=== PATIENT | male | born 1985 | race Caucasian/White ===

== ENCOUNTER 2018-06-06 15:21 | Inpatient (IN) | payer BC ==
--- NOTE | 2018-06-06 17:06 | EDM.PDOC ---
ED HPI GENERAL MEDICAL PROBLEM - General Chief Complaint: Abdominal Pain Stated Complaint: LOW ABDOMINAL PAIN Time Seen by Provider: 06/06/18 16:30 Source of Information: Reports: Patient, RN Notes Reviewed History Limitations: Reports: No Limitations - History of Present Illness INITIAL COMMENTS - FREE TEXT/NARRATIVE: Patient is a 33 year old male who presents to the ED for the evaluation of RLQ abdominal pain. He states that this pain has been present since thursday afternoon. This is a constant pressure with sharp pains that radiate to his belly button area every 4-5 min. He did have a normal BM this morning and denies any urinary issues. He further denies any history of colitis or IBS or diverticulitis. He does still have his appendix. He would rate his pain at an 8/ 10. He does admit to some nausea, but denies any vomiting or diarrhea, chest pain or shortness of breath. Right Lower Abdomen Pain Score (Numeric/FACES): 8 - Related Data Allergies Allergy/AdvReac Type Severity Reaction Status Date / Time No Known Allergies Allergy Verified 06/06/18 15:41 Home Meds: Home Meds . [No Known Home Meds] 06/06/18 [History] Past Medical History - Past Surgical History Male Surgical History: Reports: Other (See Below) Other Male Surgeries/Procedures: testicle surgery about 10 yrs ago Social & Family History - Tobacco Use Smoking Status *Q: Never Smoker - Caffeine Use Caffeine Use: Reports: Energy Drinks, Soda - Recreational Drug Use Recreational Drug Use: No ED ROS GENERAL - Review of Systems Review Of Systems: See Below Constitutional: Denies: Fever, Chills HEENT: Reports: No Symptoms Respiratory: Reports: No Symptoms Cardiovascular: Reports: No Symptoms Endocrine: Reports: No Symptoms GI/Abdominal: Reports: Nausea. Denies: Constipation, Diarrhea, Distension, Vomiting : Reports: No Symptoms Musculoskeletal: Reports: No Symptoms Skin: Reports: No Symptoms Neurological: Reports: No Symptoms Psychiatric: Reports: No Symptoms Hematologic/Lymphatic: Reports: No Symptoms Immunologic: Reports: No Symptoms ED EXAM, GI/ABD - Physical Exam Exam: See Below Exam Limited By: No Limitations General Appearance: Alert, WD/WN, No Apparent Distress Ears: Normal External Exam Nose: Normal Inspection Throat/Mouth: Normal Inspection, Normal Oropharynx, No Airway Compromise Head: Atraumatic, Normocephalic Neck: Normal Inspection Respiratory/Chest: No Respiratory Distress, Lungs Clear, Normal Breath Sounds, No Accessory Muscle Use, Chest Non-Tender Cardiovascular: Normal Peripheral Pulses, Regular Rate, Rhythm, No Murmur GI/Abdominal Exam: Normal Bowel Sounds, Soft, No Distention, No Abnormal Bruit, No Mass, Tender (RLQ). No: Distended, Guarding, Rigid, Mass Extremities: Normal Inspection, Normal Capillary Refill Neurological: Alert, Oriented, Normal Cognition, No Motor/Sensory Deficits Psychiatric: Normal Affect, Normal Mood Skin Exam: Warm, Dry, Intact, Normal Color, No Rash Course - Vital Signs Last Recorded V/S: Last Vital Signs Temp 100.3 F 06/06/18 15:40 Pulse 88 06/06/18 19:48 Resp 20 06/06/18 19:48 BP 126/82 06/06/18 19:48 Pulse Ox 99 06/06/18 19:48 - Orders/Labs/Meds Orders: Active Orders 24 hr Category Date Time Status Admission Status [Patient Status] [ADT] Routine ADT 06/06/18 19:44 Active Schedule Procedure [COMM] Stat Oth 06/06/18 19:45 Ordered Labs: Laboratory Tests 06/06/18 06/06/18 06/06/18 Range/Units 16:00 16:00 16:00 WBC 18.21 H (4.23-9.07) K/mm3 RBC 4.49 L (4.63-6.08) M/mm3 Hgb 14.3 (13.7-17.5) gm/L Hct 42.7 (40.1-51.0) % MCV 95.1 H (79.0-92.2) fl MCH 31.8 (25.7-32.2) pg MCHC 33.5 (32.2-35.5) g/dl RDW Std Deviation 43.4 (35.1-43.9) fL Plt Count 302 (163-337) K/mm3 MPV 9.8 (9.4-12.3) fl Neutrophils % (Manual) 77 H (40-60) % Band Neutrophils % 2 (0-10) % Lymphocytes % (Manual) 12 L (20-40) % Atypical Lymphs % 0 % Monocytes % (Manual) 8 (2-10) % Eosinophils % (Manual) 1 (0.8-7.0) % Basophils % (Manual) 0 L (0.2-1.2) Platelet Estimate Adequate Plt Morphology Comment Normal RBC Morph Comment Normal Sodium 139 (136-145) mEq/L Potassium 3.6 (3.5-5.1) mEq/L Chloride 101 (98-107) mEq/L Carbon Dioxide 29 (21-32) mEq/L Anion Gap 12.6 (5-15) BUN 13 (7-18) mg/dL Creatinine 1.2 (0.7-1.3) mg/dL Est Cr Clr Drug Dosing 98.03 mL/min Estimated GFR (MDRD) > 60 (>60) mL/min BUN/Creatinine Ratio 10.8 L (14-18) Glucose 105 (74-106) mg/dL Calcium 9.1 (8.5-10.1) mg/dL Total Bilirubin 2.5 H (0.2-1.0) mg/dL AST 15 (15-37) U/L ALT 20 (16-63) U/L Alkaline Phosphatase 81 (46-116) U/L C-Reactive Protein 13.8 H* (<1.0) mg/dL Total Protein 7.9 (6.4-8.2) g/dl Albumin 4.1 (3.4-5.0) g/dl Globulin 3.8 gm/dL Albumin/Globulin Ratio 1.1 (1-2) Urine Color Yellow (Yellow) Urine Appearance Clear (Clear) Urine pH 6.0 (5.0-8.0) Ur Specific [place] > or = 1.030 (1.005-1.030) Urine Protein 1+ H (Negative) Urine Glucose (UA) Negative (Negative) Urine Ketones 3+ H (Negative) Urine Occult Blood Trace-lysed H (Negative) Urine Nitrite Negative (Negative) Urine Bilirubin 1+ H (Negative) Urine Urobilinogen 0.2 (0.2-1.0) Ur Leukocyte Esterase Negative (Negative) Urine RBC 0-5 (0-5) /hpf Urine WBC 0-5 (0-5) /hpf Ur Epithelial Cells Not Reportable Ur Squamous Epith Cells 0-5 (0-5) /hpf Urine Bacteria Rare (FEW) /hpf Urine Mucus Many H (FEW) /hpf Meds: Medications Discontinued Medications Generic Name Dose Route Start Last Admin Trade Name Freq PRN Reason Stop Dose Admin Bupivacaine HCl Confirm 12/30/18 19:44 06/06/18 20:25 Marcaine 0.5% Administered 06/06/18 19:45 30 ml Dose Administration 30 ml .ROUTE .STK-MED ONE Diatrizoate Meglum/Diatrizoate Sod 90 ml 06/06/18 18:00 06/06/18 18:10 Gastrografin 37% PO 06/06/18 18:01 90 ml ONETIME ONE Administration Fentanyl Confirm 06/06/18 19:59 Sublimaze Administered 06/06/18 20:00 Dose 250 mcg .ROUTE .STK-MED ONE Fentanyl Confirm 06/06/18 20:54 Sublimaze Administered 06/06/18 20:55 Dose 100 mcg .ROUTE .STK-MED ONE Hydromorphone HCl Confirm 06/06/18 20:26 Dilaudid Administered 06/06/18 20:27 Dose 0.5 mg .ROUTE .STK-MED ONE Hydromorphone HCl Confirm 06/06/18 20:26 Dilaudid Administered 06/06/18 20:27 Dose 0.5 mg .ROUTE .STK-MED ONE Cefoxitin Sodium 1 gm/ Premix 50 mls @ 100 mls/hr 06/06/18 18:20 06/06/18 18: 26 IV 06/06/18 18:49 100 mls/hr ONETIME ONE Administration Metronidazole 500 mg/ Premix 100 mls @ 100 mls/hr 06/06/18 19:04 06/06/18 19: 17 IV 06/06/18 20:03 100 mls/hr ONETIME ONE Administration Lidocaine HCl Confirm 06/06/18 20:00 Xylocaine-Mpf 1% Administered 06/06/18 20:01 Dose 4 mls @ as directed .ROUTE .STK-MED ONE Lactated Ringer's Confirm 06/06/18 20:33 Ringers, Lactated Administered 06/06/18 20:34 Dose 1,000 mls @ as directed .ROUTE .STK-MED ONE Lactated Ringer's Confirm 06/06/18 21:17 Ringers, Lactated Administered 06/06/18 21:18 Dose 1,000 mls @ as directed .ROUTE .STK-MED ONE Iopamidol 100 ml 06/06/18 18:11 06/06/18 18:12 Isovue-300 (61%) IVPUSH 06/06/18 18:12 100 ml ONETIME ONE Administration Midazolam HCl Confirm 06/06/18 19:59 Versed 1 Mg/Ml Administered 06/06/18 20:00 Dose 2 mg .ROUTE .STK-MED ONE Ondansetron HCl Confirm 06/06/18 19:59 Zofran Administered 06/06/18 20:00 Dose 4 mg .ROUTE .STK-MED ONE Propofol Confirm 06/06/18 19:59 Diprivan 20 Ml Administered 06/06/18 20:00 Dose 200 mg .ROUTE .STK-MED ONE Rocuronium [place] Confirm 06/06/18 19:59 Zemuron Administered 06/06/18 20:00 Dose 50 mg .ROUTE .STK-MED ONE - Radiology Interpretation Free Text/Narrative:: CT abdomen and pelvis Technique: Multiple axial sections were obtained from above the dome of the diaphragm inferiorly through the pubic symphysis. Intravenous and oral contrast was utilized. Delayed images were obtained through the bladder. Comparison: Prior CT abdomen and pelvis study of 04/06/13. Findings: Small portion of the visualized lung bases are clear. Liver contains no focal abnormality. Small amount of contrast is noted within the distal esophagus compatible with reflux. Spleen appears within normal limits. Kidneys show symmetric contrast enhancement without hydronephrosis or mass. Adrenal glands show no nodule. Pancreas is within normal limits. Gallbladder contains no calcified gallstones. Aorta shows no aneurysm. No retroperitoneal adenopathy is seen. No pelvic mass or adenopathy is seen. No free fluid is seen. Enlarged appendix is seen with surrounding inflammatory change. Findings are compatible with appendicitis. Delayed images shows contrast within the distal ureters and within the bladder. Bone window settings were reviewed which show spondylolytic defects at L5-S1. Incidental scattered Schmorl node deformities within the lower thoracic and lumbar spine. Impression: 1. Findings compatible with appendicitis. 2. Other incidental findings as noted above. - Re-Assessments/Exams Free Text/Narrative Re-Assessment/Exam: 06/06/18 17:07 Pt presents to the ED for the evaluation of RLQ abdominal pain. Have ordered CBC , CMP, CRP and UA. His WBC is 18. Have ordered abdomen CT with contrast for further evaluation. This is worrisome for appendicitis. 06/06/18 17:58 Labs are back and his CRP is 13.8. 06/06/18 18:23 CT is done and reviewed by Dr. Craven. Along with his labs, he feels that this is an acute appendicitis. Dr. Flores will be consulted. 1 GM mefoxin has been ordered in anticipation for surgery. Departure - Departure Time of Disposition: 18:42 Disposition: DC/Tfer to [facility] Clinical Impression: Acute appendicitis Qualifiers: Acute appendicitis type: with localized peritonitis Appendicitis gangrene presence: without gangrene Appendicitis perforation presence: unspecified whether perforation present Appendicitis abscess presence: unspecified whether abscess present Qualified Code(s): K35.30 - Acute appendicitis with localized peritonitis, without perforation or gangrene - Discharge Information
[2018-06-06] MEDS ORDERED: Iopamidol 755 Mg/ML 100 ML Bottle IVPUSH ONE (18:00)
[2018-06-06] MEDS ORDERED: Diatrizoate Meglumine/Diatrizoate Sodium 37% 120 ML Bottle PO ONE (18:00)
[2018-06-06] MEDS ORDERED: Iopamidol 612 MG/ML 100 ML Bottle IVPUSH ONE (18:11)
[2018-06-06] MEDS ORDERED: cefOXitin 1 GM in Premix Bag 1 BAG IV ONE (18:20)
--- NOTE | 2018-06-06 18:26 | CT ---
CT abdomen and pelvis Technique: Multiple axial sections were obtained from above the dome of the diaphragm inferiorly through the pubic symphysis. Intravenous and oral contrast was utilized. Delayed images were obtained through the bladder. Comparison: Prior CT abdomen and pelvis study of 04/06/13. Findings: Small portion of the visualized lung bases are clear. Liver contains no focal abnormality. Small amount of contrast is noted within the distal esophagus compatible with reflux. Spleen appears within normal limits. Kidneys show symmetric contrast enhancement without hydronephrosis or mass. Adrenal glands show no nodule. Pancreas is within normal limits. Gallbladder contains no calcified gallstones. Aorta shows no aneurysm. No retroperitoneal adenopathy is seen. No pelvic mass or adenopathy is seen. No free fluid is seen. Enlarged appendix is seen with surrounding inflammatory change. Findings are compatible with appendicitis. Delayed images shows contrast within the distal ureters and within the bladder. Bone window settings were reviewed which show spondylolytic defects at L5-S1. Incidental scattered Schmorl node deformities within the lower thoracic and lumbar spine. Impression: 1. Findings compatible with appendicitis. 2. Other incidental findings as noted above. Diagnostic code #5
[2018-06-06] MEDS ORDERED: metroNIDAZOLE/Normal Saline 500 MG in Premix Bag 1 BAG IV ONE (19:04)
[2018-06-06] MEDS ORDERED: Bupivacaine 0.5% 30 ML SDV ONE (19:44)
--- NOTE | 2018-06-06 19:48 | PCM.PREANE ---
Preanesthetic Assessment - Anesthesia/Transfusion/Family Hx Anesthesia History: Prior Anesthesia Without Reaction Family History of Anesthesia Reaction: No Transfusion History: No Prior Transfusion(s) - Review of Systems General: Fatigue Pulmonary: No Symptoms Cardiovascular: No Symptoms Gastrointestinal: Abdominal Pain (RLQ) Neurological: No Symptoms Other: Reports: None - Physical Assessment NPO Status Date: 06/05/18 NPO Status Time: 00:00 Pulse: 88 O2 Sat by Pulse Oximetry: 99 Respiratory Rate: 20 Blood Pressure: 126/82 Vital Signs: Last Vital Signs Temp 37.9 C 06/06/18 15:40 Pulse 88 06/06/18 15:40 Resp 20 06/06/18 15:40 BP 126/82 06/06/18 15:40 Pulse Ox 99 06/06/18 15:40 Height: 1.85 m Weight: 83.915 kg ASA Class: 2E Mental Status: Alert & Oriented x3 Dentition: Reports: Normal Dentition, [place](s) Thyro-Mental Finger Breadths: 3 Mouth Opening Finger Breadths: 3 ROM/Head Extension: Full Lungs: Clear to Auscultation, Normal Respiratory Effort Cardiovascular: Regular Rate, Regular Rhythm - Lab Values: Laboratory Last Values WBC 18.21 K/mm3 (4.23-9.07) H 06/06/18 16:00 RBC 4.49 M/mm3 (4.63-6.08) L 06/06/18 16:00 Hgb 14.3 gm/L (13.7-17.5) 06/06/18 16:00 Hct 42.7 % (40.1-51.0) 06/06/18 16:00 MCV 95.1 fl (79.0-92.2) H 06/06/18 16:00 MCH 31.8 pg (25.7-32.2) 06/06/18 16:00 MCHC 33.5 g/dl (32.2-35.5) 06/06/18 16:00 RDW Std Deviation 43.4 fL (35.1-43.9) 06/06/18 16:00 Plt Count 302 K/mm3 (163-337) 06/06/18 16:00 MPV 9.8 fl (9.4-12.3) 06/06/18 16:00 Neutrophils % (Manual) 77 % (40-60) H 06/06/18 16:00 Band Neutrophils % 2 % (0-10) 06/06/18 16:00 Lymphocytes % (Manual) 12 % (20-40) L 06/06/18 16:00 Atypical Lymphs % 0 % 06/06/18 16:00 Monocytes % (Manual) 8 % (2-10) 06/06/18 16:00 Eosinophils % (Manual) 1 % (0.8-7.0) 06/06/18 16:00 Basophils % (Manual) 0 (0.2-1.2) L 06/06/18 16:00 Platelet Estimate Adequate 06/06/18 16:00 Plt Morphology Comment Normal 06/06/18 16:00 RBC Morph Comment Normal 06/06/18 16:00 Sodium 139 mEq/L (136-145) 06/06/18 16:00 Potassium 3.6 mEq/L (3.5-5.1) 06/06/18 16:00 Chloride 101 mEq/L (98-107) 06/06/18 16:00 Carbon Dioxide 29 mEq/L (21-32) 06/06/18 16:00 Anion Gap 12.6 (5-15) 06/06/18 16:00 BUN 13 mg/dL (7-18) 06/06/18 16:00 Creatinine 1.2 mg/dL (0.7-1.3) 06/06/18 16:00 Est Cr Clr Drug Dosing 98.03 mL/min 06/06/18 16:00 Estimated GFR (MDRD) > 60 mL/min (>60) 06/06/18 16:00 BUN/Creatinine Ratio 10.8 (14-18) L 06/06/18 16:00 Glucose 105 mg/dL (74-106) 06/06/18 16:00 Calcium 9.1 mg/dL (8.5-10.1) 06/06/18 16:00 Total Bilirubin 2.5 mg/dL (0.2-1.0) H 06/06/18 16:00 AST 15 U/L (15-37) 06/06/18 16:00 ALT 20 U/L (16-63) 06/06/18 16:00 Alkaline Phosphatase 81 U/L (46-116) 06/06/18 16:00 C-Reactive Protein 13.8 mg/dL (<1.0) H* 06/06/18 16:00 Total Protein 7.9 g/dl (6.4-8.2) 06/06/18 16:00 Albumin 4.1 g/dl (3.4-5.0) 06/06/18 16:00 Globulin 3.8 gm/dL 06/06/18 16:00 Albumin/Globulin Ratio 1.1 (1-2) 06/06/18 16:00 Urine Color Yellow (Yellow) 06/06/18 16:00 Urine Appearance Clear (Clear) 06/06/18 16:00 Urine pH 6.0 (5.0-8.0) 06/06/18 16:00 Ur Specific [place] > or = 1.030 (1.005-1.030) 06/06/18 16:00 Urine Protein 1+ (Negative) H 06/06/18 16:00 Urine Glucose (UA) Negative (Negative) 06/06/18 16:00 Urine Ketones 3+ (Negative) H 06/06/18 16:00 Urine Occult Blood Trace-lysed (Negative) H 06/06/18 16:00 Urine Nitrite Negative (Negative) 06/06/18 16:00 Urine Bilirubin 1+ (Negative) H 06/06/18 16:00 Urine Urobilinogen 0.2 (0.2-1.0) 06/06/18 16:00 Ur Leukocyte Esterase Negative (Negative) 06/06/18 16:00 Urine RBC 0-5 /hpf (0-5) 06/06/18 16:00 Urine WBC 0-5 /hpf (0-5) 06/06/18 16:00 Ur Epithelial Cells Not Reportable 06/06/18 16:00 Ur Squamous Epith Cells 0-5 /hpf (0-5) 06/06/18 16:00 Urine Bacteria Rare /hpf (FEW) 06/06/18 16:00 Urine Mucus Many /hpf (FEW) H 06/06/18 16:00 - Allergies Allergies/Adverse Reactions: Allergies Allergy/AdvReac Type Severity Reaction Status Date / Time No Known Allergies Allergy Verified 06/06/18 15:41 - Blood Blood Available: No Product(s) Available: None - Anesthesia Plan Pre-Op Medication Ordered: None - Acknowledgements Anesthesia Type Planned: General Anesthesia Pt an Appropriate Candidate for the Planned Anesthesia: Yes Alternatives and Risks of Anesthesia Discussed w Pt/Guardian: Yes Pt/Guardian Understands and Agrees with Anesthesia Plan: Yes PreAnesthesia Questionnaire Gastrointestinal History: Reports: GERD - Past Surgical History Male Surgical History: Reports: Other (See Below) Other Male Surgeries/Procedures: testicle surgery about 10 yrs ago - SUBSTANCE USE Smoking Status *Q: Never Smoker Tobacco Use Within Last Twelve Months: No Second Hand Smoke Exposure: No Days Per Week of Alcohol Use: 0 Number of Drinks Per Day: 0 Total Drinks Per Week: 0 Recreational Drug Use History: No - HOME MEDS Home Medications: Home Meds . [No Known Home Meds] 06/06/18 [History] - CURRENT (IN HOUSE) MEDS Current Meds: Current Medications Metronidazole 500 mg/ Premix 100 mls @ 100 mls/hr IV ONETIME ONE Stop: 06/06/18 20:03 Last Admin: 06/06/18 19:17 Dose: 100 mls/hr Discontinued Medications Diatrizoate Meglum/Diatrizoate Sod (Gastrografin 37%) 90 ml PO ONETIME ONE Stop: 06/06/18 18:01 Last Admin: 06/06/18 18:10 Dose: 90 ml Cefoxitin Sodium 1 gm/ Premix 50 mls @ 100 mls/hr IV ONETIME ONE Stop: 06/06/18 18:49 Last Admin: 06/06/18 18:26 Dose: 100 mls/hr Iopamidol (Isovue-300 (61%)) 100 ml IVPUSH ONETIME ONE Stop: 06/06/18 18:12 Last Admin: 06/06/18 18:12 Dose: 100 ml
[2018-06-06] MEDS ORDERED: Midazolam 1 MG/ML 2 ML SDV ONE (19:59)
[2018-06-06] MEDS ORDERED: Ondansetron 4 MG/2 ML SDV ONE (19:59)
[2018-06-06] MEDS ORDERED: fentaNYL 250 MCG/5 ML SDV ONE (19:59)
[2018-06-06] MEDS ORDERED: Rocuronium 50 MG/5 ML Vial ONE (19:59)
[2018-06-06] MEDS ORDERED: Propofol 200 MG/20 ML SDV ONE (19:59)
[2018-06-06] MEDS ORDERED: Lidocaine 1% 4 ML ONE (20:00)
[2018-06-06] MEDS ORDERED: HYDROmorphone 0.5 MG/0.5 ML Syringe ONE ×2 (20:26)
[2018-06-06] MEDS ORDERED: Lactated Ringers 1,000 ML ONE ×2 (20:33→21:17)
[2018-06-06] MEDS ORDERED: fentaNYL 100 MCG/2 ML SDV ONE (20:54)
--- NOTE | 2018-06-06 21:35 | PCM.OPNOTE ---
- General Post-Op/Procedure Note Date of Surgery/Procedure: 06/06/18 Operative Procedure(s): lap appy Findings: ruptured appendix Pre Op Diagnosis: acute appendicitis ruptured Post-Op Diagnosis: Same Anesthesia Technique: General ET Tube Primary Surgeon: Santosh Flores EBL in mLs: 25 Complications: None Condition: Good
--- NOTE | 2018-06-06 21:41 | PCM.POSTAN ---
POST ANESTHESIA ASSESSMENT - MENTAL STATUS Mental Status: Alert, Oriented - VITAL SIGNS Pulse Rate: 101 SaO2: 100 Resp Rate: 12 Blood Pressure: 159/84 Temperature: 37.6 C - RESPIRATORY Respiratory Status: Respiratory Rate WNL, Airway Patent, O2 Saturation Stable, Supplemental Oxygen - CARDIOVASCULAR CV Status: Pulse Rate WNL, Blood Pressure Stable - GASTROINTESTINAL GI Status: No Symptoms - PAIN Pain Score: 0 - POST OP HYDRATION Hydration Status: Adequate & Stable - OBSERVATIONS Free Text/Narrative:: no anesthesia complications noted
[2018-06-06] MEDS: fentaNYL 100 MCG/2 ML SDV IVPUSH PRN ×2 (21:49→22:10)
[2018-06-06] MEDS: HYDROmorphone 0.5 MG/0.5 ML Syringe IVPUSH PRN ×2 (22:03→22:18)
[2018-06-06] MEDS ORDERED: Ketorolac 30 MG/ML SDV IVPUSH PRN (22:12)
[2018-06-06] MEDS ORDERED: Ondansetron 4 MG/2 ML SDV IVPUSH PRN (23:32)
[2018-06-06] MEDS ORDERED: HYDROmorphone 0.5 MG/0.5 ML Syringe IVPUSH PRN (23:32)
[2018-06-07] MEDS: Acetaminophen/HYDROcodone 325-5 MG Tab PO PRN ×4 (00:09→22:08)
[2018-06-07] MEDS: Lactated Ringers 1,000 ML IV SCH ×3 (00:09→17:37)
[2018-06-07] MEDS: cefOXitin 1 GM in Premix Bag 1 BAG IV SCH ×3 (01:39→17:05)
[2018-06-07] MEDS ORDERED: HYDROmorphone 1 MG/ML Syringe IVPUSH PRN (02:17)
[2018-06-07] MEDS: metroNIDAZOLE/Normal Saline 500 MG in Premix Bag 1 BAG IV SCH ×3 (03:40→22:10)
--- NOTE | 2018-06-07 07:36 | OR ---
DATE OF OPERATION: 06/06/2018 SURGEON: Santosh Flores MD PREOPERATIVE DIAGNOSIS: Acute appendicitis, ruptured. POSTOPERATIVE DIAGNOSIS: Acute appendicitis, ruptured. OPERATION PERFORMED: Laparoscopic appendectomy done under general anesthetic. ANESTHESIA: Done under general anesthetic. ESTIMATED BLOOD LOSS: 25 mL. FINDINGS: Ruptured appendix with some feces noted around the appendix and pus. DESCRIPTION OF PROCEDURE: The patient was taken to the operating room, placed in the supine position, given a general anesthetic, and intubated. Antibiotics had been started. The abdomen was clipped and prepped with chlorhexidine, alcohol prep, and draped off in a sterile fashion. An incision was made just below the umbilicus and carried down by sharp dissection to the fascia. The fascia was incised and abdominal cavity entered and Marcial trocar was placed and secured with stay sutures. Pneumoperitoneum established, and a 5-mm 30-degree camera was inserted scanning the abdominal cavity showing an inflamed appendix was ruptured just at the base of the cecum. Fecies was noted. The patient was placed in reverse Trendelenburg leftward tilt. A 5-mm port was placed in the right upper quadrant and one in the right lower quadrant, and the appendix was mobilized and clips were used to secure the mesenteric artery until the appendix was suspended by its attachment to the cecum. This was then secured with a staple line using the Ethicon Endo-ligator. The appendix was placed in an Endobag and removed from the abdominal cavity. Pneumoperitoneum was re-established and the area around the bed of the appendix was checked and small bleeders were coagulated and Surgicel placed until it was absolutely dry. The pelvis was sucked free as was the right upper quadrant in the subhepatic space. This completed the intraabdominal portion of the procedure, noting that during the procedure, all fecal matter was removed. The ports were removed and the subumbilical port was closed with a running 0 Vicryl suture and the skin of each port was closed with subdermal 4-0 Dexon suture. Steri-Strips and sterile dressing were placed and 0.5% Marcaine was infiltrated in each site. He tolerated the procedure and sent to recovery room in a stable condition and will be placed in the hospital for observation and antibiotics. [facility] /[id number]
[2018-06-07] MEDS: Ketorolac 30 MG/ML SDV IVPUSH PRN (07:51)
--- NOTE | 2018-06-07 11:28 | PCM.SURGPN ---
- General Info Date of Service: 06/07/18 POD#: 1 Functional Status: Reports: Pain Controlled (is acceptable p pt is using the dilaudid ), Ambulating, Urinating - Review of Systems General: Reports: No Symptoms Pulmonary: Reports: No Symptoms Cardiovascular: Reports: No Symptoms Gastrointestinal: Reports: No Symptoms - Patient Data Vitals - Most Recent: Last Vital Signs Temp 98.6 F 06/07/18 09:33 Pulse 89 06/07/18 09:33 Resp 16 06/07/18 09:33 BP 117/64 06/07/18 09:33 Pulse Ox 95 06/07/18 09:33 Weight - Most Recent: 83.915 kg I&O - Last 24 Hours: Intake & Output 06/06/18 06/07/18 06/07/18 23:59 07:59 15:59 Intake Total 650 1002 200 Output Total 0 Balance 650 1002 200 Lab Results Last 24 Hrs: Laboratory Results - last 24 hr 06/06/18 06/06/18 06/06/18 Range/Units 16:00 16:00 16:00 WBC 18.21 H (4.23-9.07) K/mm3 RBC 4.49 L (4.63-6.08) M/mm3 Hgb 14.3 (13.7-17.5) gm/L Hct 42.7 (40.1-51.0) % MCV 95.1 H (79.0-92.2) fl MCH 31.8 (25.7-32.2) pg MCHC 33.5 (32.2-35.5) g/dl RDW Std Deviation 43.4 (35.1-43.9) fL Plt Count 302 (163-337) K/mm3 MPV 9.8 (9.4-12.3) fl Neutrophils % (Manual) 77 H (40-60) % Band Neutrophils % 2 (0-10) % Lymphocytes % (Manual) 12 L (20-40) % Atypical Lymphs % 0 % Monocytes % (Manual) 8 (2-10) % Eosinophils % (Manual) 1 (0.8-7.0) % Basophils % (Manual) 0 L (0.2-1.2) Platelet Estimate Adequate Plt Morphology Comment Normal RBC Morph Comment Normal Sodium 139 (136-145) mEq/L Potassium 3.6 (3.5-5.1) mEq/L Chloride 101 (98-107) mEq/L Carbon Dioxide 29 (21-32) mEq/L Anion Gap 12.6 (5-15) BUN 13 (7-18) mg/dL Creatinine 1.2 (0.7-1.3) mg/dL Est Cr Clr Drug Dosing 98.03 mL/min Estimated GFR (MDRD) > 60 (>60) mL/min BUN/Creatinine Ratio 10.8 L (14-18) Glucose 105 (74-106) mg/dL Calcium 9.1 (8.5-10.1) mg/dL Total Bilirubin 2.5 H (0.2-1.0) mg/dL AST 15 (15-37) U/L ALT 20 (16-63) U/L Alkaline Phosphatase 81 (46-116) U/L C-Reactive Protein 13.8 H* (<1.0) mg/dL Total Protein 7.9 (6.4-8.2) g/dl Albumin 4.1 (3.4-5.0) g/dl Globulin 3.8 gm/dL Albumin/Globulin Ratio 1.1 (1-2) Urine Color Yellow (Yellow) Urine Appearance Clear (Clear) Urine pH 6.0 (5.0-8.0) Ur Specific [place] > or = 1.030 (1.005-1.030) Urine Protein 1+ H (Negative) Urine Glucose (UA) Negative (Negative) Urine Ketones 3+ H (Negative) Urine Occult Blood Trace-lysed H (Negative) Urine Nitrite Negative (Negative) Urine Bilirubin 1+ H (Negative) Urine Urobilinogen 0.2 (0.2-1.0) Ur Leukocyte Esterase Negative (Negative) Urine RBC 0-5 (0-5) /hpf Urine WBC 0-5 (0-5) /hpf Ur Epithelial Cells Not Reportable Ur Squamous Epith Cells 0-5 (0-5) /hpf Urine Bacteria Rare (FEW) /hpf Urine Mucus Many H (FEW) /hpf Med Orders - Current: Current Medications Hydrocodone Bitart/Acetaminophen ([place] 325-5 Mg) 1 tab PO Q6H PRN PRN Reason: Pain Last Admin: 06/07/18 09:08 Dose: 1 tab Hydromorphone HCl (Dilaudid) 0.5 mg IVPUSH Q1H PRN PRN Reason: Pain Last Admin: 06/07/18 09:09 Dose: 0.5 mg Cefoxitin Sodium 1 gm/ Premix 50 mls @ 100 mls/hr IV Q8H [facility] Last Admin: 06/07/18 09:27 Dose: 100 mls/hr Lactated Ringer's (Ringers, Lactated) 1,000 mls @ 125 mls/hr IV ASDIRECTED [facility] Last Admin: 06/07/18 09:15 Dose: 125 mls/hr Metronidazole 500 mg/ Premix 100 mls @ 100 mls/hr IV Q8H [facility] Last Admin: 06/07/18 11:21 Dose: 100 mls/hr Ketorolac Tromethamine (Toradol) 30 mg IVPUSH Q6H PRN PRN Reason: Pain Stop: 06/11/18 04:31 Last Admin: 06/07/18 07:51 Dose: 30 mg Ondansetron HCl (Zofran) 4 mg IVPUSH Q8H PRN PRN Reason: Nausea Discontinued Medications Bupivacaine HCl (Marcaine 0.5%) Confirm Administered Dose 30 ml .ROUTE .STK-MED ONE Stop: 06/06/18 19:45 Last Admin: 06/06/18 20:25 Dose: 7 ml Diatrizoate Meglum/Diatrizoate Sod (Gastrografin 37%) 90 ml PO ONETIME ONE Stop: 06/06/18 18:01 Last Admin: 06/06/18 18:10 Dose: 90 ml Fentanyl (Sublimaze) Confirm Administered Dose 250 mcg .ROUTE .STK-MED ONE Stop: 06/06/18 20:00 Fentanyl (Sublimaze) Confirm Administered Dose 100 mcg .ROUTE .STK-MED ONE Stop: 06/06/18 20:55 Fentanyl (Sublimaze) 50 mcg IVPUSH Q5M PRN PRN Reason: Pain Last Admin: 06/06/18 22:10 Dose: 50 mcg Hydromorphone HCl (Dilaudid) Confirm Administered Dose 0.5 mg .ROUTE .STK-MED ONE Stop: 06/06/18 20:27 Hydromorphone HCl (Dilaudid) Confirm Administered Dose 0.5 mg .ROUTE .STK-MED ONE Stop: 06/06/18 20:27 Hydromorphone HCl (Dilaudid) 0.5 mg IVPUSH Q10M PRN PRN Reason: Pain (severe 7-10) Last Admin: 06/06/18 22:18 Dose: 0.5 mg Hydromorphone HCl (Dilaudid) 0.5 mg IVPUSH Q1H PRN PRN Reason: Pain Last Admin: 06/07/18 02:29 Dose: 0.5 mg Cefoxitin Sodium 1 gm/ Premix 50 mls @ 100 mls/hr IV ONETIME ONE Stop: 06/06/18 18:49 Last Admin: 06/06/18 18:26 Dose: 100 mls/hr Metronidazole 500 mg/ Premix 100 mls @ 100 mls/hr IV ONETIME ONE Stop: 06/06/18 20:03 Last Admin: 06/06/18 19:17 Dose: 100 mls/hr Lidocaine HCl (Xylocaine-Mpf 1%) Confirm Administered Dose 4 mls @ as directed .ROUTE .STK-MED ONE Stop: 06/06/18 20:01 Lactated Ringer's (Ringers, Lactated) Confirm Administered Dose 1,000 mls @ as directed .ROUTE .STK-MED ONE Stop: 06/06/18 20:34 Lactated Ringer's (Ringers, Lactated) Confirm Administered Dose 1,000 mls @ as directed .ROUTE .STK-MED ONE Stop: 06/06/18 21:18 Iopamidol (Isovue-300 (61%)) 100 ml IVPUSH ONETIME ONE Stop: 06/06/18 18:12 Last Admin: 06/06/18 18:12 Dose: 100 ml Ketorolac Tromethamine (Toradol) 30 mg IVPUSH ONETIME PRN PRN Reason: Pain Last Admin: 06/06/18 22:25 Dose: 30 mg Midazolam HCl (Versed 1 Mg/Ml) Confirm Administered Dose 2 mg .ROUTE .STK-MED ONE Stop: 06/06/18 20:00 Ondansetron HCl (Zofran) Confirm Administered Dose 4 mg .ROUTE .STK-MED ONE Stop: 06/06/18 20:00 Propofol (Diprivan 20 Ml) Confirm Administered Dose 200 mg .ROUTE .STK-MED ONE Stop: 06/06/18 20:00 Rocuronium [place] (Zemuron) Confirm Administered Dose 50 mg .ROUTE .STK-MED ONE Stop: 06/06/18 20:00 - Exam General: Alert, Oriented Lungs: Clear to Auscultation, Normal Respiratory Effort GI/Abdominal Exam: Distended - Problem List Review Problem List Initiated/Reviewed/Updated: Yes - My Orders Last 24 Hours: Active Orders 24 hr Category Date Time Status Patient Status [ADT] Routine ADT 06/07/18 11:10 Active Notify Provider [RC] ASDIRECTED Care 06/06/18 21:40 Active Oxygen Therapy [RC] ASDIRECTED Care 06/06/18 21:39 Active Pulse Oximetry [RC] ASDIRECTED Care 06/06/18 21:39 Active RT Incentive Spirometry [RC] Q2HWA Care 06/06/18 23:39 Active Up ad [place] [RC] ASDIRECTED Care 06/07/18 01:16 Active Clear Liquid Diet [DIET] Diet 06/07/18 Breakfast Active Acetaminophen/HYDROcodone [[place] 325-5 MG] Med 06/06/18 23:32 Active 1 tab PO Q6H PRN HYDROmorphone [Dilaudid] Med 06/07/18 02:17 Active 0.5 mg IVPUSH Q1H PRN Ketorolac [Toradol] Med 06/07/18 04:30 Active 30 mg IVPUSH Q6H PRN Lactated Ringers [Ringers, Lactated] 1,000 ml Med 06/06/18 23:32 Active IV ASDIRECTED Ondansetron [Zofran] Med 06/06/18 23:32 Active 4 mg IVPUSH Q8H PRN cefOXitin [Mefoxin in Dextrose,Iso-Osm 1 GM/50 ML] 1 gm Med 06/07/18 02:00 Active Premix Bag 1 bag IV Q8H metroNIDAZOLE/Normal Saline [Flagyl 500 MG in NS 100 ML Med 06/07/18 04:00 Active ] 500 mg Premix Bag 1 bag IV Q8H SCD [Sequential Compression Device] [OM.PC] Routine Oth 06/06/18 23:32 Ordered Schedule Procedure [COMM] Stat Oth 06/06/18 19:45 Ordered Code Status [Resuscitation Status] Routine Resus Stat 06/07/18 01:15 Ordered Medication Orders Hydrocodone Bitart/Acetaminophen ([place] 325-5 Mg) 1 tab PO Q6H PRN PRN Reason: Pain Last Admin: 06/07/18 09:08 Dose: 1 tab Admin: 06/07/18 00:09 Dose: 1 tab Hydromorphone HCl (Dilaudid) 0.5 mg IVPUSH Q1H PRN PRN Reason: Pain Last Admin: 06/07/18 09:09 Dose: 0.5 mg Cefoxitin Sodium 1 gm/ Premix 50 mls @ 100 mls/hr IV Q8H [facility] Last Admin: 06/07/18 09:27 Dose: 100 mls/hr Infusion: 06/07/18 02:09 Dose: 100 mls/hr Admin: 06/07/18 01:39 Dose: 100 mls/hr Lactated Ringer's (Ringers, Lactated) 1,000 mls @ 125 mls/hr IV ASDIRECTED [facility] Last Admin: 06/07/18 09:15 Dose: 125 mls/hr Infusion: 06/07/18 08:09 Dose: 125 mls/hr Admin: 06/07/18 00:09 Dose: 125 mls/hr Metronidazole 500 mg/ Premix 100 mls @ 100 mls/hr IV Q8H [facility] Last Admin: 06/07/18 11:21 Dose: 100 mls/hr Infusion: 06/07/18 04:40 Dose: 100 mls/hr Admin: 06/07/18 03:40 Dose: 100 mls/hr Ketorolac Tromethamine (Toradol) 30 mg IVPUSH Q6H PRN PRN Reason: Pain Stop: 06/11/18 04:31 Last Admin: 06/07/18 07:51 Dose: 30 mg Ondansetron HCl (Zofran) 4 mg IVPUSH Q8H PRN PRN Reason: Nausea - Plan Plan (Free Text/Narrative):: pt is developing an ilius plan continue with presen treatment
--- NOTE | 2018-06-07 11:29 | PCM48HPAN ---
Post Anesthesia Note - EVALUATION WITHIN 48HRS OF ANESTHETIC Vital Signs in Normal Range: Yes Patient Participated in Evaluation: Yes Respiratory Function Stable: Yes Airway Patent: Yes Cardiovascular Function Stable: Yes Hydration Status Stable: Yes Pain Control Satisfactory: Yes Nausea and Vomiting Control Satisfactory: Yes Mental Status Recovered: Yes
[2018-06-08] MEDS: cefOXitin 1 GM in Premix Bag 1 BAG IV SCH ×3 (02:42→17:22)
[2018-06-08] MEDS: Lactated Ringers 1,000 ML IV SCH ×2 (02:42→12:58)
[2018-06-08] MEDS: metroNIDAZOLE/Normal Saline 500 MG in Premix Bag 1 BAG IV SCH ×3 (02:59→20:35)
[2018-06-08] MEDS ORDERED: Sodium Chloride 0.9% 10 ML Syringe FLUSH PRN (08:26)
--- NOTE | 2018-06-08 08:27 | PCM.SURGPN ---
- General Info Date of Service: 06/08/18 POD#: 1 Functional Status: Reports: Pain Controlled - Review of Systems General: Reports: No Symptoms HEENT: Reports: No Symptoms Pulmonary: Reports: No Symptoms Cardiovascular: Reports: No Symptoms - Patient Data Vitals - Most Recent: Last Vital Signs Temp 98.4 F 06/08/18 02:52 Pulse 98 06/08/18 02:52 Resp 12 06/08/18 02:52 BP 122/81 06/08/18 02:52 Pulse Ox 96 06/08/18 02:52 Weight - Most Recent: 86.954 kg I&O - Last 24 Hours: Intake & Output 06/07/18 06/08/18 06/08/18 23:59 07:59 15:59 Intake Total 2156 1924 Output Total 1400 Balance 756 1924 Med Orders - Current: Current Medications Hydrocodone Bitart/Acetaminophen ([place] 325-5 Mg) 1 tab PO Q6H PRN PRN Reason: Pain Last Admin: 06/07/18 22:08 Dose: 1 tab Hydromorphone HCl (Dilaudid) 0.5 mg IVPUSH Q1H PRN PRN Reason: Pain Last Admin: 06/07/18 09:09 Dose: 0.5 mg Cefoxitin Sodium 1 gm/ Premix 50 mls @ 100 mls/hr IV Q8H [facility] Last Admin: 06/08/18 02:42 Dose: 100 mls/hr Lactated Ringer's (Ringers, Lactated) 1,000 mls @ 125 mls/hr IV ASDIRECTED [facility] Last Admin: 06/08/18 02:42 Dose: 125 mls/hr Metronidazole 500 mg/ Premix 100 mls @ 100 mls/hr IV Q8H [facility] Last Admin: 06/08/18 02:59 Dose: 100 mls/hr Ketorolac Tromethamine (Toradol) 30 mg IVPUSH Q6H PRN PRN Reason: Pain Stop: 06/11/18 04:31 Last Admin: 06/07/18 07:51 Dose: 30 mg Ondansetron HCl (Zofran) 4 mg IVPUSH Q8H PRN PRN Reason: Nausea Discontinued Medications Bupivacaine HCl (Marcaine 0.5%) Confirm Administered Dose 30 ml .ROUTE .STK-MED ONE Stop: 06/06/18 19:45 Last Admin: 06/06/18 20:25 Dose: 7 ml Diatrizoate Meglum/Diatrizoate Sod (Gastrografin 37%) 90 ml PO ONETIME ONE Stop: 06/06/18 18:01 Last Admin: 06/06/18 18:10 Dose: 90 ml Fentanyl (Sublimaze) Confirm Administered Dose 250 mcg .ROUTE .STK-MED ONE Stop: 06/06/18 20:00 Fentanyl (Sublimaze) Confirm Administered Dose 100 mcg .ROUTE .STK-MED ONE Stop: 06/06/18 20:55 Fentanyl (Sublimaze) 50 mcg IVPUSH Q5M PRN PRN Reason: Pain Last Admin: 06/06/18 22:10 Dose: 50 mcg Hydromorphone HCl (Dilaudid) Confirm Administered Dose 0.5 mg .ROUTE .STK-MED ONE Stop: 06/06/18 20:27 Hydromorphone HCl (Dilaudid) Confirm Administered Dose 0.5 mg .ROUTE .STK-MED ONE Stop: 06/06/18 20:27 Hydromorphone HCl (Dilaudid) 0.5 mg IVPUSH Q10M PRN PRN Reason: Pain (severe 7-10) Last Admin: 06/06/18 22:18 Dose: 0.5 mg Hydromorphone HCl (Dilaudid) 0.5 mg IVPUSH Q1H PRN PRN Reason: Pain Last Admin: 06/07/18 02:29 Dose: 0.5 mg Cefoxitin Sodium 1 gm/ Premix 50 mls @ 100 mls/hr IV ONETIME ONE Stop: 06/06/18 18:49 Last Admin: 06/06/18 18:26 Dose: 100 mls/hr Metronidazole 500 mg/ Premix 100 mls @ 100 mls/hr IV ONETIME ONE Stop: 06/06/18 20:03 Last Admin: 06/06/18 19:17 Dose: 100 mls/hr Lidocaine HCl (Xylocaine-Mpf 1%) Confirm Administered Dose 4 mls @ as directed .ROUTE .STK-MED ONE Stop: 06/06/18 20:01 Lactated Ringer's (Ringers, Lactated) Confirm Administered Dose 1,000 mls @ as directed .ROUTE .STK-MED ONE Stop: 06/06/18 20:34 Lactated Ringer's (Ringers, Lactated) Confirm Administered Dose 1,000 mls @ as directed .ROUTE .STK-MED ONE Stop: 06/06/18 21:18 Iopamidol (Isovue-300 (61%)) 100 ml IVPUSH ONETIME ONE Stop: 06/06/18 18:12 Last Admin: 06/06/18 18:12 Dose: 100 ml Ketorolac Tromethamine (Toradol) 30 mg IVPUSH ONETIME PRN PRN Reason: Pain Last Admin: 06/06/18 22:25 Dose: 30 mg Midazolam HCl (Versed 1 Mg/Ml) Confirm Administered Dose 2 mg .ROUTE .STK-MED ONE Stop: 06/06/18 20:00 Ondansetron HCl (Zofran) Confirm Administered Dose 4 mg .ROUTE .STK-MED ONE Stop: 06/06/18 20:00 Propofol (Diprivan 20 Ml) Confirm Administered Dose 200 mg .ROUTE .STK-MED ONE Stop: 06/06/18 20:00 Rocuronium [place] (Zemuron) Confirm Administered Dose 50 mg .ROUTE .STK-MED ONE Stop: 06/06/18 20:00 - Exam Wound/Incisions: Healing Well Lungs: Clear to Auscultation, Normal Respiratory Effort Cardiovascular: Regular Rate, Regular Rhythm GI/Abdominal Exam: Normal Bowel Sounds, Other (having BM) - Problem List Review Problem List Initiated/Reviewed/Updated: Yes - My Orders Last 24 Hours: Active Orders 24 hr Category Date Time Status Patient Status [ADT] Routine ADT 06/07/18 11:10 Active Medication Orders Hydrocodone Bitart/Acetaminophen ([place] 325-5 Mg) 1 tab PO Q6H PRN PRN Reason: Pain Last Admin: 06/07/18 22:08 Dose: 1 tab Admin: 06/07/18 15:44 Dose: 1 tab Admin: 06/07/18 09:08 Dose: 1 tab Admin: 06/07/18 00:09 Dose: 1 tab Hydromorphone HCl (Dilaudid) 0.5 mg IVPUSH Q1H PRN PRN Reason: Pain Last Admin: 06/07/18 09:09 Dose: 0.5 mg Cefoxitin Sodium 1 gm/ Premix 50 mls @ 100 mls/hr IV Q8H [facility] Last Admin: 06/08/18 02:42 Dose: 100 mls/hr Infusion: 06/07/18 17:35 Dose: 100 mls/hr Admin: 06/07/18 17:05 Dose: 100 mls/hr Infusion: 06/07/18 09:57 Dose: 100 mls/hr Admin: 06/07/18 09:27 Dose: 100 mls/hr Infusion: 06/07/18 02:09 Dose: 100 mls/hr Admin: 06/07/18 01:39 Dose: 100 mls/hr Lactated Ringer's (Ringers, Lactated) 1,000 mls @ 125 mls/hr IV ASDIRECTED [facility] Last Admin: 06/08/18 02:42 Dose: 125 mls/hr Infusion: 06/08/18 01:37 Dose: 125 mls/hr Admin: 06/07/18 17:37 Dose: 125 mls/hr Infusion: 06/07/18 17:15 Dose: 125 mls/hr Admin: 06/07/18 09:15 Dose: 125 mls/hr Infusion: 06/07/18 08:09 Dose: 125 mls/hr Admin: 06/07/18 00:09 Dose: 125 mls/hr Metronidazole 500 mg/ Premix 100 mls @ 100 mls/hr IV Q8H [facility] Last Admin: 06/08/18 02:59 Dose: 100 mls/hr Infusion: 06/07/18 23:10 Dose: 100 mls/hr Admin: 06/07/18 22:10 Dose: 100 mls/hr Infusion: 06/07/18 12:21 Dose: 100 mls/hr Admin: 06/07/18 11:21 Dose: 100 mls/hr Infusion: 06/07/18 04:40 Dose: 100 mls/hr Admin: 06/07/18 03:40 Dose: 100 mls/hr Ketorolac Tromethamine (Toradol) 30 mg IVPUSH Q6H PRN PRN Reason: Pain Stop: 06/11/18 04:31 Last Admin: 06/07/18 07:51 Dose: 30 mg Ondansetron HCl (Zofran) 4 mg IVPUSH Q8H PRN PRN Reason: Nausea - Plan Plan (Free Text/Narrative):: improved plan saline lock IV may shower and check cbc in am [facility]
[2018-06-08] MEDS: Acetaminophen/HYDROcodone 325-5 MG Tab PO PRN ×2 (09:35→16:51)
[2018-06-08] MEDS: Ketorolac 30 MG/ML SDV IVPUSH PRN ×2 (12:08→20:41)
[2018-06-08] MEDS ORDERED: Saccharomyces Boulardii (Probiotic) 250 MG Cap PO ONE (12:42)
[2018-06-09] MEDS: Acetaminophen/HYDROcodone 325-5 MG Tab PO PRN ×4 (01:21→21:06)
[2018-06-09] MEDS: cefOXitin 1 GM in Premix Bag 1 BAG IV SCH ×3 (01:22→17:33)
[2018-06-09] MEDS: Lactated Ringers 1,000 ML IV SCH ×2 (03:32→18:08)
[2018-06-09] MEDS: metroNIDAZOLE/Normal Saline 500 MG in Premix Bag 1 BAG IV SCH ×2 (03:32→17:14)
[2018-06-09] MEDS: Saccharomyces Boulardii (Probiotic) 250 MG Cap PO SCH (08:10)
--- NOTE | 2018-06-09 12:30 | PCM.SURGPN ---
- General Info Date of Service: 06/09/18 POD#: 3 Functional Status: Reports: Pain Controlled - Review of Systems General: Reports: No Symptoms Pulmonary: Reports: No Symptoms Cardiovascular: Reports: No Symptoms Gastrointestinal: Reports: No Symptoms, Decreased Appetite, Other - Patient Data Vitals - Most Recent: Last Vital Signs Temp 99.0 F 06/09/18 08:12 Pulse 91 06/09/18 08:12 Resp 18 06/09/18 08:12 BP 130/74 06/09/18 08:12 Pulse Ox 94 L 06/09/18 08:12 Weight - Most Recent: 86.818 kg I&O - Last 24 Hours: Intake & Output 06/08/18 06/09/18 06/09/18 23:59 07:59 15:59 Intake Total 998 1450 Balance 998 1450 Lab Results Last 24 Hrs: Laboratory Results - last 24 hr 06/08/18 06/09/18 Range/Units 17:55 05:47 WBC 20.41 H 17.92 H (4.23-9.07) K/mm3 RBC 3.87 L 3.83 L (4.63-6.08) M/mm3 Hgb 12.2 L 12.0 L (13.7-17.5) gm/L Hct 37.5 L 37.2 L (40.1-51.0) % MCV 96.9 H 97.1 H (79.0-92.2) fl MCH 31.5 31.3 (25.7-32.2) pg MCHC 32.5 32.3 (32.2-35.5) g/dl RDW Std Deviation 43.9 44.1 H (35.1-43.9) fL Plt Count 270 284 (163-337) K/mm3 MPV 9.9 10.1 (9.4-12.3) fl Neut % (Auto) 88.8 H 85.9 H (34.0-67.9) % Lymph % (Auto) 3.2 L 4.9 L (21.8-53.1) % [place] % (Auto) 7.3 8.3 (5.3-12.2) % Eos % (Auto) 0.3 L 0.6 L (0.8-7.0) Baso % (Auto) 0.1 0.1 (0.1-1.2) % Neut # (Auto) 18.09 H 15.41 H (1.78-5.38) K/mm3 Lymph # (Auto) 0.66 L 0.87 L (1.32-3.57) K/mm3 [place] # (Auto) 1.50 H 1.49 H (0.30-0.82) K/mm3 Eos # (Auto) 0.07 0.10 (0.04-0.54) K/mm3 Baso # (Auto) 0.02 0.01 (0.01-0.08) K/mm3 Manual Slide Review Abnormal smear Abnormal smear Med Orders - Current: Current Medications Hydrocodone Bitart/Acetaminophen ([place] 325-5 Mg) 1 tab PO Q6H PRN PRN Reason: Pain Last Admin: 06/09/18 08:10 Dose: 1 tab Hydromorphone HCl (Dilaudid) 0.5 mg IVPUSH Q1H PRN PRN Reason: Pain Last Admin: 06/07/18 09:09 Dose: 0.5 mg Cefoxitin Sodium 1 gm/ Premix 50 mls @ 100 mls/hr IV Q8H [facility] Last Admin: 06/09/18 09:26 Dose: 100 mls/hr Lactated Ringer's (Ringers, Lactated) 1,000 mls @ 70 mls/hr IV ASDIRECTED [facility] Last Admin: 06/09/18 03:32 Dose: 70 mls/hr Ketorolac Tromethamine (Toradol) 30 mg IVPUSH Q6H PRN PRN Reason: Pain Stop: 06/11/18 04:31 Last Admin: 06/08/18 20:41 Dose: 30 mg Metronidazole (Flagyl) 500 mg PO Q8H [facility] Ondansetron HCl (Zofran) 4 mg IVPUSH Q8H PRN PRN Reason: Nausea Saccharomyces Boulardii (Florastor) 250 mg PO DAILY [facility] Last Admin: 06/09/18 08:10 Dose: 250 mg Sodium Chloride (Saline Flush) 10 ml FLUSH ASDIRECTED PRN PRN Reason: Keep Vein Open Discontinued Medications Bupivacaine HCl (Marcaine 0.5%) Confirm Administered Dose 30 ml .ROUTE .STK-MED ONE Stop: 06/06/18 19:45 Last Admin: 06/06/18 20:25 Dose: 7 ml Diatrizoate Meglum/Diatrizoate Sod (Gastrografin 37%) 90 ml PO ONETIME ONE Stop: 06/06/18 18:01 Last Admin: 06/06/18 18:10 Dose: 90 ml Fentanyl (Sublimaze) Confirm Administered Dose 250 mcg .ROUTE .STK-MED ONE Stop: 06/06/18 20:00 Fentanyl (Sublimaze) Confirm Administered Dose 100 mcg .ROUTE .STK-MED ONE Stop: 06/06/18 20:55 Fentanyl (Sublimaze) 50 mcg IVPUSH Q5M PRN PRN Reason: Pain Last Admin: 06/06/18 22:10 Dose: 50 mcg Hydromorphone HCl (Dilaudid) Confirm Administered Dose 0.5 mg .ROUTE .STK-MED ONE Stop: 06/06/18 20:27 Hydromorphone HCl (Dilaudid) Confirm Administered Dose 0.5 mg .ROUTE .STK-MED ONE Stop: 06/06/18 20:27 Hydromorphone HCl (Dilaudid) 0.5 mg IVPUSH Q10M PRN PRN Reason: Pain (severe 7-10) Last Admin: 06/06/18 22:18 Dose: 0.5 mg Hydromorphone HCl (Dilaudid) 0.5 mg IVPUSH Q1H PRN PRN Reason: Pain Last Admin: 06/07/18 02:29 Dose: 0.5 mg Cefoxitin Sodium 1 gm/ Premix 50 mls @ 100 mls/hr IV ONETIME ONE Stop: 06/06/18 18:49 Last Admin: 06/06/18 18:26 Dose: 100 mls/hr Metronidazole 500 mg/ Premix 100 mls @ 100 mls/hr IV ONETIME ONE Stop: 06/06/18 20:03 Last Admin: 06/06/18 19:17 Dose: 100 mls/hr Lidocaine HCl (Xylocaine-Mpf 1%) Confirm Administered Dose 4 mls @ as directed .ROUTE .STK-MED ONE Stop: 06/06/18 20:01 Lactated Ringer's (Ringers, Lactated) Confirm Administered Dose 1,000 mls @ as directed .ROUTE .STK-MED ONE Stop: 06/06/18 20:34 Lactated Ringer's (Ringers, Lactated) Confirm Administered Dose 1,000 mls @ as directed .ROUTE .STK-MED ONE Stop: 06/06/18 21:18 Lactated Ringer's (Ringers, Lactated) 1,000 mls @ 125 mls/hr IV ASDIRECTED [facility] Last Admin: 06/08/18 02:42 Dose: 125 mls/hr Metronidazole 500 mg/ Premix 100 mls @ 100 mls/hr IV Q8H [facility] Last Admin: 06/09/18 03:32 Dose: 100 mls/hr Iopamidol (Isovue-300 (61%)) 100 ml IVPUSH ONETIME ONE Stop: 06/06/18 18:12 Last Admin: 06/06/18 18:12 Dose: 100 ml Ketorolac Tromethamine (Toradol) 30 mg IVPUSH ONETIME PRN PRN Reason: Pain Last Admin: 06/06/18 22:25 Dose: 30 mg Midazolam HCl (Versed 1 Mg/Ml) Confirm Administered Dose 2 mg .ROUTE .STK-MED ONE Stop: 06/06/18 20:00 Ondansetron HCl (Zofran) Confirm Administered Dose 4 mg .ROUTE .STK-MED ONE Stop: 06/06/18 20:00 Propofol (Diprivan 20 Ml) Confirm Administered Dose 200 mg .ROUTE .STK-MED ONE Stop: 06/06/18 20:00 Rocuronium [place] (Zemuron) Confirm Administered Dose 50 mg .ROUTE .STK-MED ONE Stop: 06/06/18 20:00 Saccharomyces Boulardii (Florastor) 250 mg PO DAILY ONE Stop: 06/08/18 12:43 Last Admin: 06/08/18 12:59 Dose: 250 mg - Exam Wound/Incisions: Healing Well General: Alert, Oriented GI/Abdominal Exam: Normal Bowel Sounds, Soft, Non-Tender, No Organomegaly, No Distention, No Abnormal Bruit, No Mass, Pelvis Stable - Problem List Review Problem List Initiated/Reviewed/Updated: Yes - My Orders Last 24 Hours: Active Orders 24 hr Category Date Time Status Lactated Ringers [Ringers, Lactated] 1,000 ml Med 06/08/18 12:45 Active IV ASDIRECTED Saccharomyces Boulardii [Florastor] Med 06/09/18 09:00 Active 250 mg PO DAILY metroNIDAZOLE [Flagyl] Med 06/09/18 12:30 Ordered 500 mg PO Q8H Medication Orders Hydrocodone Bitart/Acetaminophen ([place] 325-5 Mg) 1 tab PO Q6H PRN PRN Reason: Pain Last Admin: 06/09/18 08:10 Dose: 1 tab Admin: 06/09/18 01:21 Dose: 1 tab Admin: 06/08/18 16:51 Dose: 1 tab Admin: 06/08/18 09:35 Dose: 1 tab Admin: 06/07/18 22:08 Dose: 1 tab Admin: 06/07/18 15:44 Dose: 1 tab Admin: 06/07/18 09:08 Dose: 1 tab Admin: 06/07/18 00:09 Dose: 1 tab Hydromorphone HCl (Dilaudid) 0.5 mg IVPUSH Q1H PRN PRN Reason: Pain Last Admin: 06/07/18 09:09 Dose: 0.5 mg Cefoxitin Sodium 1 gm/ Premix 50 mls @ 100 mls/hr IV Q8H [facility] Last Admin: 06/09/18 09:26 Dose: 100 mls/hr Infusion: 06/09/18 01:52 Dose: 100 mls/hr Admin: 06/09/18 01:22 Dose: 100 mls/hr Infusion: 06/08/18 17:52 Dose: 100 mls/hr Admin: 06/08/18 17:22 Dose: 100 mls/hr Infusion: 06/08/18 10:06 Dose: 100 mls/hr Admin: 06/08/18 09:36 Dose: 100 mls/hr Infusion: 06/08/18 03:12 Dose: 100 mls/hr Admin: 06/08/18 02:42 Dose: 100 mls/hr Infusion: 06/07/18 17:35 Dose: 100 mls/hr Admin: 06/07/18 17:05 Dose: 100 mls/hr Infusion: 06/07/18 09:57 Dose: 100 mls/hr Admin: 06/07/18 09:27 Dose: 100 mls/hr Infusion: 06/07/18 02:09 Dose: 100 mls/hr Admin: 06/07/18 01:39 Dose: 100 mls/hr Lactated Ringer's (Ringers, Lactated) 1,000 mls @ 70 mls/hr IV ASDIRECTED [facility] Last Admin: 06/09/18 03:32 Dose: 70 mls/hr Infusion: 06/09/18 03:16 Dose: 70 mls/hr Admin: 06/08/18 12:58 Dose: 70 mls/hr Ketorolac Tromethamine (Toradol) 30 mg IVPUSH Q6H PRN PRN Reason: Pain Stop: 06/11/18 04:31 Last Admin: 06/08/18 20:41 Dose: 30 mg Admin: 06/08/18 12:08 Dose: 30 mg Admin: 06/07/18 07:51 Dose: 30 mg Metronidazole (Flagyl) 500 mg PO Q8H [facility] Ondansetron HCl (Zofran) 4 mg IVPUSH Q8H PRN PRN Reason: Nausea Saccharomyces Boulardii (Florastor) 250 mg PO DAILY [facility] Last Admin: 06/09/18 08:10 Dose: 250 mg Sodium Chloride (Saline Flush) 10 ml FLUSH ASDIRECTED PRN PRN Reason: Keep Vein Open - Plan Plan (Free Text/Narrative):: improved deccrease appitite likly due to flagly pln change flagyl harvey po KURT
[2018-06-09] MEDS: metroNIDAZOLE 500 MG Tab PO SCH ×2 (13:31→21:12)
[2018-06-09] MEDS ORDERED: Acetaminophen 325 MG Tab PO PRN (16:27)
[2018-06-10] MEDS: cefOXitin 1 GM in Premix Bag 1 BAG IV SCH ×3 (01:57→17:46)
[2018-06-10] MEDS: Acetaminophen/HYDROcodone 325-5 MG Tab PO PRN ×4 (02:30→22:39)
[2018-06-10] MEDS: metroNIDAZOLE 500 MG Tab PO SCH ×3 (05:50→20:26)
[2018-06-10] MEDS: Lactated Ringers 1,000 ML IV SCH (08:09)
[2018-06-10] MEDS: Saccharomyces Boulardii (Probiotic) 250 MG Cap PO SCH (08:10)
--- NOTE | 2018-06-10 16:45 | PCM.SURGPN ---
- General Info Date of Service: 06/10/18 POD#: 4 (t) Functional Status: Reports: Pain Controlled - Review of Systems General: Reports: No Symptoms HEENT: Reports: No Symptoms Pulmonary: Reports: No Symptoms Cardiovascular: Reports: No Symptoms Gastrointestinal: Reports: No Symptoms Genitourinary: Reports: No Symptoms - Patient Data Vitals - Most Recent: Last Vital Signs Temp 99.0 F 06/10/18 14:34 Pulse 90 06/10/18 14:34 Resp 16 06/10/18 14:34 BP 129/79 06/10/18 14:34 Pulse Ox 97 06/10/18 14:34 Weight - Most Recent: 87.589 kg I&O - Last 24 Hours: Intake & Output 06/10/18 06/10/18 06/10/18 07:59 15:59 23:59 Intake Total 1476 2351 Output Total 1150 1600 Balance 326 751 Med Orders - Current: Current Medications Acetaminophen (Tylenol) 650 mg PO Q4H PRN PRN Reason: Fever Last Admin: 06/09/18 16:37 Dose: 650 mg Hydrocodone Bitart/Acetaminophen ([place] 325-5 Mg) 1 tab PO Q6H PRN PRN Reason: Pain Last Admin: 06/10/18 16:33 Dose: 1 tab Hydromorphone HCl (Dilaudid) 0.5 mg IVPUSH Q1H PRN PRN Reason: Pain Last Admin: 06/07/18 09:09 Dose: 0.5 mg Cefoxitin Sodium 1 gm/ Premix 50 mls @ 100 mls/hr IV Q8H [facility] Last Admin: 06/10/18 09:16 Dose: 100 mls/hr Ketorolac Tromethamine (Toradol) 30 mg IVPUSH Q6H PRN PRN Reason: Pain Stop: 06/11/18 04:31 Last Admin: 06/08/18 20:41 Dose: 30 mg Metronidazole (Flagyl) 500 mg PO Q8H [facility] Last Admin: 06/10/18 12:10 Dose: 500 mg Ondansetron HCl (Zofran) 4 mg IVPUSH Q8H PRN PRN Reason: Nausea Last Admin: 06/09/18 16:37 Dose: 4 mg Saccharomyces Boulardii (Florastor) 250 mg PO DAILY [facility] Last Admin: 06/10/18 08:10 Dose: 250 mg Sodium Chloride (Saline Flush) 10 ml FLUSH ASDIRECTED PRN PRN Reason: Keep Vein Open Discontinued Medications Bupivacaine HCl (Marcaine 0.5%) Confirm Administered Dose 30 ml .ROUTE .STK-MED ONE Stop: 06/06/18 19:45 Last Admin: 06/06/18 20:25 Dose: 7 ml Diatrizoate Meglum/Diatrizoate Sod (Gastrografin 37%) 90 ml PO ONETIME ONE Stop: 06/06/18 18:01 Last Admin: 06/06/18 18:10 Dose: 90 ml Fentanyl (Sublimaze) Confirm Administered Dose 250 mcg .ROUTE .STK-MED ONE Stop: 06/06/18 20:00 Fentanyl (Sublimaze) Confirm Administered Dose 100 mcg .ROUTE .STK-MED ONE Stop: 06/06/18 20:55 Fentanyl (Sublimaze) 50 mcg IVPUSH Q5M PRN PRN Reason: Pain Last Admin: 06/06/18 22:10 Dose: 50 mcg Hydromorphone HCl (Dilaudid) Confirm Administered Dose 0.5 mg .ROUTE .STK-MED ONE Stop: 06/06/18 20:27 Hydromorphone HCl (Dilaudid) Confirm Administered Dose 0.5 mg .ROUTE .STK-MED ONE Stop: 06/06/18 20:27 Hydromorphone HCl (Dilaudid) 0.5 mg IVPUSH Q10M PRN PRN Reason: Pain (severe 7-10) Last Admin: 06/06/18 22:18 Dose: 0.5 mg Hydromorphone HCl (Dilaudid) 0.5 mg IVPUSH Q1H PRN PRN Reason: Pain Last Admin: 06/07/18 02:29 Dose: 0.5 mg Cefoxitin Sodium 1 gm/ Premix 50 mls @ 100 mls/hr IV ONETIME ONE Stop: 06/06/18 18:49 Last Admin: 06/06/18 18:26 Dose: 100 mls/hr Metronidazole 500 mg/ Premix 100 mls @ 100 mls/hr IV ONETIME ONE Stop: 06/06/18 20:03 Last Admin: 06/06/18 19:17 Dose: 100 mls/hr Lidocaine HCl (Xylocaine-Mpf 1%) Confirm Administered Dose 4 mls @ as directed .ROUTE .[facility] [place]-MED ONE Stop: 06/06/18 20:01 Lactated Ringer's (Ringers, Lactated) Confirm Administered Dose 1,000 mls @ as directed .ROUTE .[facility] [place]-MED ONE Stop: 06/06/18 20:34 Lactated Ringer's (Ringers, Lactated) Confirm Administered Dose 1,000 mls @ as directed .ROUTE .[facility] [place]-MED ONE Stop: 06/06/18 21:18 Lactated Ringer's (Ringers, Lactated) 1,000 mls @ 125 mls/hr IV ASDIRECTED [facility] Last Admin: 06/08/18 02:42 Dose: 125 mls/hr Metronidazole 500 mg/ Premix 100 mls @ 100 mls/hr IV Q8H [facility] Last Admin: 06/09/18 17:14 Dose: Not Given Lactated Ringer's (Ringers, Lactated) 1,000 mls @ 70 mls/hr IV ASDIRECTED [facility] Last Admin: 06/10/18 08:09 Dose: 70 mls/hr Iopamidol (Isovue-300 (61%)) 100 ml IVPUSH ONETIME ONE Stop: 06/06/18 18:12 Last Admin: 06/06/18 18:12 Dose: 100 ml Ketorolac Tromethamine (Toradol) 30 mg IVPUSH ONETIME PRN PRN Reason: Pain Last Admin: 06/06/18 22:25 Dose: 30 mg Midazolam HCl (Versed 1 Mg/Ml) Confirm Administered Dose 2 mg .ROUTE .[facility] [place]-MED ONE Stop: 06/06/18 20:00 Ondansetron HCl (Zofran) Confirm Administered Dose 4 mg .ROUTE .[facility]-MED ONE Stop: 06/06/18 20:00 Propofol (Diprivan 20 Ml) Confirm Administered Dose 200 mg .ROUTE .K-MED ONE Stop: 06/06/18 20:00 Rocuronium [place] (Zemuron) Confirm Administered Dose 50 mg .ROUTE .K-MED ONE Stop: 06/06/18 20:00 Saccharomyces Boulardii (Florastor) 250 mg PO DAILY ONE Stop: 06/08/18 12:43 Last Admin: 06/08/18 12:59 Dose: 250 mg - Exam Wound/Incisions: Healing Well Lungs: Clear to Auscultation, Normal Respiratory Effort Cardiovascular: Regular Rate, Regular Rhythm GI/Abdominal Exam: Soft, Non-Tender - Problem List Review Problem List Initiated/Reviewed/Updated: Yes - My Orders Last 24 Hours: Active Orders 24 hr Category Date Time Status Acetaminophen [Tylenol] Med 06/09/18 16:27 Active 650 mg PO Q4H PRN Medication Orders Acetaminophen (Tylenol) 650 mg PO Q4H PRN PRN Reason: Fever Last Admin: 06/09/18 16:37 Dose: 650 mg Hydrocodone Bitart/Acetaminophen ([place] 325-5 Mg) 1 tab PO Q6H PRN PRN Reason: Pain Last Admin: 06/10/18 16:33 Dose: 1 tab Admin: 06/10/18 09:15 Dose: 1 tab Admin: 06/10/18 02:30 Dose: 1 tab Admin: 06/09/18 21:06 Dose: 1 tab Admin: 06/09/18 14:53 Dose: 1 tab Admin: 06/09/18 08:10 Dose: 1 tab Admin: 06/09/18 01:21 Dose: 1 tab Admin: 06/08/18 16:51 Dose: 1 tab Admin: 06/08/18 09:35 Dose: 1 tab Admin: 06/07/18 22:08 Dose: 1 tab Admin: 06/07/18 15:44 Dose: 1 tab Admin: 06/07/18 09:08 Dose: 1 tab Admin: 06/07/18 00:09 Dose: 1 tab Hydromorphone HCl (Dilaudid) 0.5 mg IVPUSH Q1H PRN PRN Reason: Pain Last Admin: 06/07/18 09:09 Dose: 0.5 mg Cefoxitin Sodium 1 gm/ Premix 50 mls @ 100 mls/hr IV Q8H [facility] Last Admin: 06/10/18 09:16 Dose: 100 mls/hr Infusion: 06/10/18 02:27 Dose: 100 mls/hr Admin: 06/10/18 01:57 Dose: 100 mls/hr Infusion: 06/09/18 18:03 Dose: 100 mls/hr Admin: 06/09/18 17:33 Dose: 100 mls/hr Infusion: 06/09/18 09:56 Dose: 100 mls/hr Admin: 06/09/18 09:26 Dose: 100 mls/hr Infusion: 06/09/18 01:52 Dose: 100 mls/hr Admin: 06/09/18 01:22 Dose: 100 mls/hr Infusion: 06/08/18 17:52 Dose: 100 mls/hr Admin: 06/08/18 17:22 Dose: 100 mls/hr Infusion: 06/08/18 10:06 Dose: 100 mls/hr Admin: 06/08/18 09:36 Dose: 100 mls/hr Infusion: 06/08/18 03:12 Dose: 100 mls/hr Admin: 06/08/18 02:42 Dose: 100 mls/hr Infusion: 06/07/18 17:35 Dose: 100 mls/hr Admin: 06/07/18 17:05 Dose: 100 mls/hr Infusion: 06/07/18 09:57 Dose: 100 mls/hr Admin: 06/07/18 09:27 Dose: 100 mls/hr Infusion: 06/07/18 02:09 Dose: 100 mls/hr Admin: 06/07/18 01:39 Dose: 100 mls/hr Ketorolac Tromethamine (Toradol) 30 mg IVPUSH Q6H PRN PRN Reason: Pain Stop: 06/11/18 04:31 Last Admin: 06/08/18 20:41 Dose: 30 mg Admin: 06/08/18 12:08 Dose: 30 mg Admin: 06/07/18 07:51 Dose: 30 mg Metronidazole (Flagyl) 500 mg PO Q8H [facility] Last Admin: 06/10/18 12:10 Dose: 500 mg Admin: 06/10/18 05:50 Dose: 500 mg Admin: 06/09/18 21:12 Dose: 500 mg Admin: 06/09/18 13:31 Dose: 500 mg Ondansetron HCl (Zofran) 4 mg IVPUSH Q8H PRN PRN Reason: Nausea Last Admin: 06/09/18 16:37 Dose: 4 mg Saccharomyces Boulardii (Florastor) 250 mg PO DAILY [facility] Last Admin: 06/10/18 08:10 Dose: 250 mg Admin: 06/09/18 08:10 Dose: 250 mg Sodium Chloride (Saline Flush) 10 ml FLUSH ASDIRECTED PRN PRN Reason: Keep Vein Open - Plan Plan (Free Text/Narrative):: improved DC IV fluid and advance diet nausea improved [facility]
[2018-06-10] MEDS: Ketorolac 30 MG/ML SDV IVPUSH PRN (22:36)
[2018-06-11] MEDS: cefOXitin 1 GM in Premix Bag 1 BAG IV SCH ×2 (02:58→09:44)
[2018-06-11] MEDS: metroNIDAZOLE 500 MG Tab PO SCH ×2 (04:27→11:05)
[2018-06-11] MEDS: Saccharomyces Boulardii (Probiotic) 250 MG Cap PO SCH (09:44)
--- NOTE | 2018-06-11 10:40 | PCM.SURGPN ---
- General Info Date of Service: 06/11/18 Functional Status: Reports: Pain Controlled - Review of Systems General: Reports: No Symptoms Gastrointestinal: Reports: No Symptoms - Patient Data Vitals - Most Recent: Last Vital Signs Temp 98.2 F 06/11/18 08:15 Pulse 82 06/11/18 08:15 Resp 18 06/11/18 08:15 BP 129/93 H 06/11/18 08:15 Pulse Ox 96 06/11/18 08:15 Weight - Most Recent: 87.498 kg I&O - Last 24 Hours: Intake & Output 06/10/18 06/11/18 06/11/18 23:59 07:59 15:59 Intake Total 0 1200 0 Balance 0 1200 0 Lab Results Last 24 Hrs: Laboratory Results - last 24 hr 06/11/18 Range/Units 05:33 WBC 11.80 H (4.23-9.07) K/mm3 RBC 4.00 L (4.63-6.08) M/mm3 Hgb 12.6 L (13.7-17.5) gm/L Hct 38.6 L (40.1-51.0) % MCV 96.5 H (79.0-92.2) fl MCH 31.5 (25.7-32.2) pg MCHC 32.6 (32.2-35.5) g/dl RDW Std Deviation 45.2 H (35.1-43.9) fL Plt Count 343 H (163-337) K/mm3 MPV 9.6 (9.4-12.3) fl Neut % (Auto) 68.9 H (34.0-67.9) % Lymph % (Auto) 12.6 L (21.8-53.1) % [place] % (Auto) 13.8 H (5.3-12.2) % Eos % (Auto) 3.3 (0.8-7.0) Baso % (Auto) 0.3 (0.1-1.2) % Neut # (Auto) 8.12 H (1.78-5.38) K/mm3 Lymph # (Auto) 1.49 (1.32-3.57) K/mm3 [place] # (Auto) 1.63 H (0.30-0.82) K/mm3 Eos # (Auto) 0.39 (0.04-0.54) K/mm3 Baso # (Auto) 0.04 (0.01-0.08) K/mm3 Manual Slide Review Abnormal smear Med Orders - Current: Current Medications Acetaminophen (Tylenol) 650 mg PO Q4H PRN PRN Reason: Fever Last Admin: 06/09/18 16:37 Dose: 650 mg Hydrocodone Bitart/Acetaminophen ([place] 325-5 Mg) 1 tab PO Q6H PRN PRN Reason: Pain Last Admin: 06/10/18 22:39 Dose: 1 tab Hydromorphone HCl (Dilaudid) 0.5 mg IVPUSH Q1H PRN PRN Reason: Pain Last Admin: 06/07/18 09:09 Dose: 0.5 mg Cefoxitin Sodium 1 gm/ Premix 50 mls @ 100 mls/hr IV Q8H [facility] Last Admin: 06/11/18 09:44 Dose: 100 mls/hr Metronidazole (Flagyl) 500 mg PO Q8H [facility] Last Admin: 06/11/18 04:27 Dose: 500 mg Ondansetron HCl (Zofran) 4 mg IVPUSH Q8H PRN PRN Reason: Nausea Last Admin: 06/09/18 16:37 Dose: 4 mg Saccharomyces Boulardii (Florastor) 250 mg PO DAILY [facility] Last Admin: 06/11/18 09:44 Dose: 250 mg Sodium Chloride (Saline Flush) 10 ml FLUSH ASDIRECTED PRN PRN Reason: Keep Vein Open Discontinued Medications Bupivacaine HCl (Marcaine 0.5%) Confirm Administered Dose 30 ml .ROUTE .STK-MED ONE Stop: 06/06/18 19:45 Last Admin: 06/06/18 20:25 Dose: 7 ml Diatrizoate Meglum/Diatrizoate Sod (Gastrografin 37%) 90 ml PO ONETIME ONE Stop: 06/06/18 18:01 Last Admin: 06/06/18 18:10 Dose: 90 ml Fentanyl (Sublimaze) Confirm Administered Dose 250 mcg .ROUTE .STK-MED ONE Stop: 06/06/18 20:00 Fentanyl (Sublimaze) Confirm Administered Dose 100 mcg .ROUTE .STK-MED ONE Stop: 06/06/18 20:55 Fentanyl (Sublimaze) 50 mcg IVPUSH Q5M PRN PRN Reason: Pain Last Admin: 06/06/18 22:10 Dose: 50 mcg Hydromorphone HCl (Dilaudid) Confirm Administered Dose 0.5 mg .ROUTE .STK-MED ONE Stop: 06/06/18 20:27 Hydromorphone HCl (Dilaudid) Confirm Administered Dose 0.5 mg .ROUTE .STK-MED ONE Stop: 06/06/18 20:27 Hydromorphone HCl (Dilaudid) 0.5 mg IVPUSH Q10M PRN PRN Reason: Pain (severe 7-10) Last Admin: 06/06/18 22:18 Dose: 0.5 mg Hydromorphone HCl (Dilaudid) 0.5 mg IVPUSH Q1H PRN PRN Reason: Pain Last Admin: 06/07/18 02:29 Dose: 0.5 mg Cefoxitin Sodium 1 gm/ Premix 50 mls @ 100 mls/hr IV ONETIME ONE Stop: 06/06/18 18:49 Last Admin: 06/06/18 18:26 Dose: 100 mls/hr Metronidazole 500 mg/ Premix 100 mls @ 100 mls/hr IV ONETIME ONE Stop: 06/06/18 20:03 Last Admin: 06/06/18 19:17 Dose: 100 mls/hr Lidocaine HCl (Xylocaine-Mpf 1%) Confirm Administered Dose 4 mls @ as directed .ROUTE .STK-MED ONE Stop: 06/06/18 20:01 Lactated Ringer's (Ringers, Lactated) Confirm Administered Dose 1,000 mls @ as directed .ROUTE .STK-MED ONE Stop: 06/06/18 20:34 Lactated Ringer's (Ringers, Lactated) Confirm Administered Dose 1,000 mls @ as directed .ROUTE .STK-MED ONE Stop: 06/06/18 21:18 Lactated Ringer's (Ringers, Lactated) 1,000 mls @ 125 mls/hr IV ASDIRECTED [facility] Last Admin: 06/08/18 02:42 Dose: 125 mls/hr Metronidazole 500 mg/ Premix 100 mls @ 100 mls/hr IV Q8H [facility] Last Admin: 06/09/18 17:14 Dose: Not Given Lactated Ringer's (Ringers, Lactated) 1,000 mls @ 70 mls/hr IV ASDIRECTED [facility] Last Admin: 06/10/18 08:09 Dose: 70 mls/hr Iopamidol (Isovue-300 (61%)) 100 ml IVPUSH ONETIME ONE Stop: 06/06/18 18:12 Last Admin: 06/06/18 18:12 Dose: 100 ml Ketorolac Tromethamine (Toradol) 30 mg IVPUSH ONETIME PRN PRN Reason: Pain Last Admin: 06/06/18 22:25 Dose: 30 mg Ketorolac Tromethamine (Toradol) 30 mg IVPUSH Q6H PRN PRN Reason: Pain Stop: 06/11/18 04:31 Last Admin: 06/10/18 22:36 Dose: 30 mg Midazolam HCl (Versed 1 Mg/Ml) Confirm Administered Dose 2 mg .ROUTE .STK-MED ONE Stop: 06/06/18 20:00 Ondansetron HCl (Zofran) Confirm Administered Dose 4 mg .ROUTE .STK-MED ONE Stop: 06/06/18 20:00 Propofol (Diprivan 20 Ml) Confirm Administered Dose 200 mg .ROUTE .STK-MED ONE Stop: 06/06/18 20:00 Rocuronium [place] (Zemuron) Confirm Administered Dose 50 mg .ROUTE .STK-MED ONE Stop: 06/06/18 20:00 Saccharomyces Boulardii (Florastor) 250 mg PO DAILY ONE Stop: 06/08/18 12:43 Last Admin: 06/08/18 12:59 Dose: 250 mg - Exam GI/Abdominal Exam: Normal Bowel Sounds, Soft, Non-Tender, No Organomegaly, No Distention, No Abnormal Bruit, No Mass, Pelvis Stable - Problem List Review Problem List Initiated/Reviewed/Updated: Yes - My Orders Last 24 Hours: Active Orders 24 hr Category Date Time Status Ready for Discharge [RC] PER UNIT ROUTINE Care 06/11/18 10:30 Ordered Regular Diet [DIET] Diet 06/10/18 Dinner Active Medication Orders Acetaminophen (Tylenol) 650 mg PO Q4H PRN PRN Reason: Fever Last Admin: 06/09/18 16:37 Dose: 650 mg Hydrocodone Bitart/Acetaminophen ([place] 325-5 Mg) 1 tab PO Q6H PRN PRN Reason: Pain Last Admin: 06/10/18 22:39 Dose: 1 tab Admin: 06/10/18 16:33 Dose: 1 tab Admin: 06/10/18 09:15 Dose: 1 tab Admin: 06/10/18 02:30 Dose: 1 tab Admin: 06/09/18 21:06 Dose: 1 tab Admin: 06/09/18 14:53 Dose: 1 tab Admin: 06/09/18 08:10 Dose: 1 tab Admin: 06/09/18 01:21 Dose: 1 tab Admin: 06/08/18 16:51 Dose: 1 tab Admin: 06/08/18 09:35 Dose: 1 tab Admin: 06/07/18 22:08 Dose: 1 tab Admin: 06/07/18 15:44 Dose: 1 tab Admin: 06/07/18 09:08 Dose: 1 tab Admin: 06/07/18 00:09 Dose: 1 tab Hydromorphone HCl (Dilaudid) 0.5 mg IVPUSH Q1H PRN PRN Reason: Pain Last Admin: 06/07/18 09:09 Dose: 0.5 mg Cefoxitin Sodium 1 gm/ Premix 50 mls @ 100 mls/hr IV Q8H [facility] Last Admin: 06/11/18 09:44 Dose: 100 mls/hr Infusion: 06/11/18 03:28 Dose: 100 mls/hr Admin: 06/11/18 02:58 Dose: 100 mls/hr Infusion: 06/10/18 18:16 Dose: 100 mls/hr Admin: 06/10/18 17:46 Dose: 100 mls/hr Infusion: 06/10/18 09:46 Dose: 100 mls/hr Admin: 06/10/18 09:16 Dose: 100 mls/hr Infusion: 06/10/18 02:27 Dose: 100 mls/hr Admin: 06/10/18 01:57 Dose: 100 mls/hr Infusion: 06/09/18 18:03 Dose: 100 mls/hr Admin: 06/09/18 17:33 Dose: 100 mls/hr Infusion: 06/09/18 09:56 Dose: 100 mls/hr Admin: 06/09/18 09:26 Dose: 100 mls/hr Infusion: 06/09/18 01:52 Dose: 100 mls/hr Admin: 06/09/18 01:22 Dose: 100 mls/hr Infusion: 06/08/18 17:52 Dose: 100 mls/hr Admin: 06/08/18 17:22 Dose: 100 mls/hr Infusion: 06/08/18 10:06 Dose: 100 mls/hr Admin: 06/08/18 09:36 Dose: 100 mls/hr Infusion: 06/08/18 03:12 Dose: 100 mls/hr Admin: 06/08/18 02:42 Dose: 100 mls/hr Infusion: 06/07/18 17:35 Dose: 100 mls/hr Admin: 06/07/18 17:05 Dose: 100 mls/hr Infusion: 06/07/18 09:57 Dose: 100 mls/hr Admin: 06/07/18 09:27 Dose: 100 mls/hr Infusion: 06/07/18 02:09 Dose: 100 mls/hr Admin: 06/07/18 01:39 Dose: 100 mls/hr Metronidazole (Flagyl) 500 mg PO Q8H [facility] Last Admin: 06/11/18 04:27 Dose: 500 mg Admin: 06/10/18 20:26 Dose: 500 mg Admin: 06/10/18 12:10 Dose: 500 mg Admin: 06/10/18 05:50 Dose: 500 mg Admin: 06/09/18 21:12 Dose: 500 mg Admin: 06/09/18 13:31 Dose: 500 mg Ondansetron HCl (Zofran) 4 mg IVPUSH Q8H PRN PRN Reason: Nausea Last Admin: 06/09/18 16:37 Dose: 4 mg Saccharomyces Boulardii (Florastor) 250 mg PO DAILY [facility] Last Admin: 06/11/18 09:44 Dose: 250 mg Admin: 06/10/18 08:10 Dose: 250 mg Admin: 06/09/18 08:10 Dose: 250 mg Sodium Chloride (Saline Flush) 10 ml FLUSH ASDIRECTED PRN PRN Reason: Keep Vein Open - Plan Plan (Free Text/Narrative):: improved plan discharge discharge summary dictated KURT
--- NOTE | 2018-06-11 12:04 | DISCH ---
ADMISSION DATE: 06/07/2018 DISCHARGE DATE: 06/11/2018 HISTORY OF PRESENT ILLNESS: This is a 33-year-old, who came in through the emergency room with abdominal pain that started about 3 days prior to being seen in the emergency room and that was severe and steady in the right lower quadrant, and CT scan was done by emergency room physician showing acute appendix. White count was 19,000. His health was generally good. PHYSICAL EXAMINATION: GENERAL: Showed an alert and cooperative male. EYES: Sclerae white. Extraocular muscle motion normal. ORAL CAVITY: Healthy mucous membrane. NECK: Supple. LUNGS: Clear. ABDOMEN: Showed tenderness in the right lower quadrant on deep palpation. VITAL SIGNS: Temperature is 100.3, pulse 88, and respirations 20. HOSPITAL COURSE: The patient was seen in the emergency room and as an urgent procedure immediately brought to the operating room, where laparoscopic appendectomy was performed. He was found to have a ruptured appendix. He was kept in the hospital with antibiotics and the first 3 days, he had a poor appetite and some nausea and this gradually resolved. His white count came down from 19,000 to 11,000. At the time of his discharge, he was up and ambulating, eating without problem, surgical sites were healing, and he was felt ready for discharge. He was discharged for followup in the clinic in 1 week. MEDICATIONS: Tylenol 650 one p.o. q.i.d. p.r.n. pain, Augmentin 875 mg twice a day for 4 days, and probiotics. He was instructed not to engage in vigorous activities or work and follow up and see me in 1 week.. DISCHARGE DIAGNOSIS: Ruptured appendix, status post laparoscopic appendectomy. DIET ON DISCHARGE: Regular. CONDITION ON DISCHARGE: Improved. FINAL DIAGNOSIS: DISCHARGE MEDICATIONS: DIET: ACTIVITY: FOLLOW-UP: [facility] /[id number]
--- NOTE | 2018-06-18 14:28 | HP ---
DATE OF ADMISSION: 06/07/2018 HISTORY OF PRESENT ILLNESS: This is a 33-year-old who came into the emergency room after 4 days of not feeling well and complaining of pain in the right lower quadrant associated with some nausea, poor appetite, and unable to eat. He was evaluated in the emergency room where a CT scan showed acute appendicitis. His white count was noted to be 19,000. He was generally in good health. PHYSICAL EXAMINATION: GENERAL: At the time of admission revealed alert and cooperative male. HEENT: Eyes, sclerae white. Extraocular muscle motion normal. Oral cavity, healthy mucous membrane with mouth and tongue. NECK: Supple. No nodes. No thyromegaly. LUNGS: Clear. No rales, rhonchi, fremitus, or dullness. HEART: Tones regular rate. No S3, S4, jugular venous distention, or murmurs. ABDOMEN: Shows tenderness on deep palpation in the right lower quadrant. EXTREMITIES: Upper and lower extremities; no angulation deformities. No sensorineural deficit. SKIN: Warm and dry. PSYCHOLOGIC: Normal. VITAL SIGNS: Temperature is a 100.3, pulse 88, respirations 20. PAST MEDICAL HISTORY: Good health. CURRENT MEDICATIONS: None. REVIEW OF SYSTEMS: No chest pain, shortness of breath, cough, hoarseness, wheezing, fainting, weakness, numbness, convulsions. Does have nausea and loss of appetite. SOCIAL HISTORY: Good health and no use of drugs, smoking, or drinking. ASSESSMENT: Acute appendicitis, likely possibly ruptured. Discussed this with the patient, risks, complications, he understands and consents. PHYLLIS /[id number]
== END 2018-06-11 11:25 | disposition home or self-care (01) | DRG 233 ==
LOC: JD.ED 15:21 → JD.SDS 19:44 → JD.MS 23:25 → OBSVTOIN 06-07 11:10
PROVIDERS: ADMIT Surgery; ATTEND Surgery
PROC: 0DTJ4ZZ Resection of Appendix, Percutaneous Endoscopic Approach (ICD-10-PCS; principal; 2018-06-06)
DX: K35.32 Acute appendicitis with perforation, localized peritonitis, and gangrene, without abscess (principal)
CPT/HCPCS: 00840; 36415; 74177; 74177-26; 80053; 81001; 85007; 85025; 85027; 86140; 96365; 96366; 96368; 99285; 99285-25; A9270-GY; G0378; J0694; J1170; J1885; J2001; J2250; J2405; J2704; J3010; J3490; J7120; Q9963; Q9967